=== PATIENT | female | born 1970 | race Caucasian/White ===

== ENCOUNTER 2018-11-20 19:49 | Emergency (ER) | payer SELFPAY ==
[2018-11-20 20:26] VITALS: TEMP 98.6
--- NOTE | 2018-11-20 21:06 | ED.PDOC ---
History of Present Illness - General Chief Complaint: General Stated Complaint: back/hips hurting x's 2 wks, foul urine, bloating Time Seen by Provider: 11/20/18 20:48 Source: patient Exam Limitations: no limitations - History of Present Illness Initial Comments: PT C/O ABDOMINAL DISTENTION. PT C/O DISCOMFORT FOR PAST 2-3 DAYS. NAUSEA, NO VOMITING. Severity: mild Improving Factors: nothing Worsening Factors: nothing Associated Symptoms: denies symptoms Allergies/Adverse Reactions: Allergies NO KNOWN ALLERGY Allergy (Verified 10/22/15 21:09) Home Medications: Ambulatory Orders Amoxicillin & Pot Clavulanate [Augmentin] 875 mg PO BID #20 tab 10/22/15 Dicyclomine HCl [Bentyl] 20 mg PO Q6HR PRN #20 tab 11/20/18 Review of Systems - Review of Systems Constitutional: Denies: chills, fever EENTM: States: no symptoms reported Respiratory: Denies: cough, short of breath Cardiology: Denies: chest pain, palpitations, syncope Gastrointestinal/Abdominal: States: abdominal pain, constipation, nausea. Denies: vomiting Genitourinary: States: other - FOUL SMELLING URINE. Denies: dysuria, frequency, hematuria Musculoskeletal: Denies: back pain, neck pain Skin: States: no symptoms reported Neurological: States: no symptoms reported Endocrine: States: no symptoms reported Hematologic/Lymphatic: States: no symptoms reported Past Medical History (General) - Patient Medical History Hx Seizures: No Hx Stroke: No Hx Dementia: No Hx Asthma: No Hx of COPD: Yes Hx Cardiac Disorders: Yes Hx Congestive Heart Failure: Yes Hx Pacemaker: No Hx Hypertension: No Hx Thyroid Disease: No Hx Diabetes: No Hx Gastroesophageal Reflux: Yes Hx Renal Disease: No Hx Cancer: No Hx of HIV: No Hx Hepatitis C: No Hx MRSA: No - Vaccination History Hx Tetanus, Diphtheria Vaccination: No Hx Influenza Vaccination: No Hx Pneumococcal Vaccination: No - Social History Hx Tobacco Use: Yes - Quit March 2017 Hx Alcohol Use: No Hx Substance Use: No Hx Substance Use Treatment: No Hx Depression: Yes - Female History Patient : No Family Medical History - Family History Mother Family History: Unknown Living Status: Unknown Physical Exam - Physical Exam General Appearance: No apparent distress, Obese Eye Exam: bilateral normal Ears, Nose, Throat: hearing grossly normal, other - MOIST MM Neck: non-tender, normal inspection Respiratory: lungs clear, normal breath sounds Cardiovascular/Chest: regular rate, rhythm, no murmur Gastrointestinal/Abdominal: soft, no organomegaly, other - MILD DIFFUSE ABDOMINAL TTP, SLIGHTLY HYPOACTIVE BS. Back Exam: normal inspection, no CVA tenderness, no vertebral tenderness Extremity: normal range of motion, non-tender, no pedal edema Neurologic: alert, normal mood/affect Skin Exam: normal color, warm/dry Lymphatic: no adenopathy Progress - EKG/XRAY/CT XRAY: ACUTE ABD, NO OBST, NO FREE AIR Departure - Departure Clinical Impression: Abdominal pain Qualifiers: Abdominal location: generalized Qualified Code(s): R10.84 - Generalized abdominal pain Constipation Qualifiers: Constipation type: unspecified constipation type Qualified Code(s): K59.00 - Constipation, unspecified Time of Disposition: 22:57 Disposition: Discharge to Home or Self Care Condition: Good Departure Forms: ED Discharge - Pt. Copy, Patient Portal Self Enrollment Instructions: Constipation in Adults Prescriptions: Dicyclomine HCl [Bentyl] 20 mg PO Q6HR PRN #20 tab PRN Reason: Abdominal Cramping Home Medications: Ambulatory Orders Amoxicillin & Pot Clavulanate [Augmentin] 875 mg PO BID #20 tab 10/22/15 Dicyclomine HCl [Bentyl] 20 mg PO Q6HR PRN #20 tab 11/20/18 Additional Instructions: USE MIRALAX DAILY FOR SEVEN DAYS
--- NOTE | 2018-11-20 21:51 | RAD ---
EXAM DESCRIPTION: Abdomen Flat Upright (accession [id number]), Chest,1 View (accession [id number]) CLINICAL HISTORY: 48 years Female ,ABDOMINAL PAIN, DISTENTION COMPARISON: None. TECHNIQUE: Frontal view chest x-ray and two views of the abdomen. FINDINGS: The cardiomediastinal silhouette appears unremarkable. Changes from previous sternotomy. Hyperexpanded lungs. No consolidating infiltrates or pleural effusions. Atherosclerotic calcifications in the aorta. No free air is identified beneath the hemidiaphragms. The colon appears slightly distended with stool. No dilated loops of bowel to suggest obstruction. No significant calcific densities are identified. Densities overlying the left midabdomen may be from postsurgical change. IMPRESSION: No acute plain film abnormality is identified. Electronically signed by: Steffen Claros MD 11/20/2018 9:50 PM CUT OFF [employer]
--- NOTE | 2018-11-20 21:51 | RAD ---
EXAM DESCRIPTION: Abdomen Flat Upright (accession [id number]), Chest,1 View (accession [id number]) CLINICAL HISTORY: 48 years Female ,ABDOMINAL PAIN, DISTENTION COMPARISON: None. TECHNIQUE: Frontal view chest x-ray and two views of the abdomen. FINDINGS: The cardiomediastinal silhouette appears unremarkable. Changes from previous sternotomy. Hyperexpanded lungs. No consolidating infiltrates or pleural effusions. Atherosclerotic calcifications in the aorta. No free air is identified beneath the hemidiaphragms. The colon appears slightly distended with stool. No dilated loops of bowel to suggest obstruction. No significant calcific densities are identified. Densities overlying the left midabdomen may be from postsurgical change. IMPRESSION: No acute plain film abnormality is identified. Electronically signed by: Steffen Claros MD 11/20/2018 9:50 PM TREATMENT SPECIALIST
[2018-11-20 22:29] VITALS: BP 104/86; O2SAT 94
== END 2018-11-20 23:17 | disposition home or self-care (01) ==
LOC: ER 19:49
DX: K59.00 Constipation, unspecified (principal); R10.84 Generalized abdominal pain; F32.9 Major depressive disorder, single episode, unspecified; J44.9 Chronic obstructive pulmonary disease, unspecified; I50.9 Heart failure, unspecified; K21.9 Gastro-esophageal reflux disease without esophagitis; Z87.891 Personal history of nicotine dependence

== ENCOUNTER → 2020-12-17 | Outpatient (CLI) | payer MEDICARE, MEDICAID | LOC: CT 13:27 | PROVIDERS: ATTEND Family Medicine | DX: Z01.812 Encounter for preprocedural laboratory examination (principal); J44.9 Chronic obstructive pulmonary disease, unspecified ==

== ENCOUNTER → 2020-12-23 | Outpatient (CLI) | payer MEDICARE, MEDICAID ==
--- NOTE | 2020-12-24 08:19 | CT ---
Study: CT Chest. Indication: COPD Technique: CT imaging of the chest obtained with and without intravenous administration of contrast. This exam was performed according to our departmental dose-optimization program, which includes automated exposure control, adjustment of the mA and/or kV according to patient size and/or use of iterative reconstruction technique. Comparison: None. Findings: Sternotomy wires. Atherosclerosis. Heart size normal. Enlarged 18 mm x 13 mm right hilar lymph node. 13 mm x 8 mm left hilar lymph node. Degenerative changes of the spine noted. Mild to moderate emphysema. Image 67, 10 mm right middle lobe noncalcified pulmonary nodule. Image 76, 9 mm right lower lobe subpleural noncalcified pulmonary nodule. Several additional scattered nodules throughout the bilateral lungs. Mild hazy groundglass attenuation at the bilateral lung bases. No overt consolidation, pleural effusion or pneumothorax. Impression: Oxar-[id number] emphysema. Scattered pulmonary nodules above. Follow-up CT chest in 3-6 months recommended with additional follow-up at 18-24 months. Subtle hazy ground glass attenuation lung bases. This could reflect air trapping. Mild edema or atypical infection are also considerations. Enlarged hilar lymph nodes. Attention on follow-up CT recommended. Additional findings as above. Electronically signed by: Tim Putnam MD 12/24/2020 8:17 AM CHIEF OPERATOR
== END ==
LOC: CT 13:41
PROVIDERS: ATTEND Family Medicine
DX: J43.9 Emphysema, unspecified (principal); R91.8 Other nonspecific abnormal finding of lung field